=== PATIENT | male | born 2000 | race Caucasian/White ===

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

== ENCOUNTER 2022-01-27 15:24 | Emergency (ER) | payer SELFPAY ==
[2022-01-27 15:33] VITALS: BP 173/108; PULSE 108; RESP 18; TEMP 36.8; O2SAT 100
[2022-01-27 16:48] LABS: Add Urine Microscopic? NO; Charge for UA Resulting for Rev
[2022-01-27 16:53] LABS: Basophils % 0.6 %; Eosinophils # 0.1 10^3/uL (0.0-0.8); Eosinophils % 1.9 %; Hematocrit 46.1 % (42.0-52.0); Hemoglobin 15.6 g/dL (11.7-16.6); Lymphocytes # 1.9 10^3/uL (1.5-6.5); Mean Corpuscular HGB Conc 33.8 g/dL (30.0-36.0); Mean Corpuscular Hemoglobin 31.1 pg (28.0-34.0); Mean Platelet Volume 9.3 fL (7.4-10.4); Monocytes # 0.7 10^3/uL (0.2-0.9); Monocytes % 10.2 %; Nucleated Red Blood Cells % 0 %; Platelet Count 348 10^3/cmm (130-400); Red Blood Count 5.01 10^6/uL (4.1-5.3); Red Cell Distribution Width 12.9 % (12.1-15.1); White Blood Count 6.8 10^3/uL (4.5-13.0)
--- NOTE | 2022-01-27 17:01 | W.ED.GENADLT ---
HPI - General Adult General: Chief complaint: General Medical Stated complaint: pain in groin/swollen Time Seen by Provider: 01/27/22 17:01 History of Present Illness: Patient is a 22-year-old male without any significant past medical history presenting to the emergency room with left inner thigh pain and bump x5 days. Patient was at work when she first noticed this bump which has been persistent. Patient's rash to her 10 pain worse with irritation. Patient denies any fever/chills, groin pain, testicular pain or swelling, new penile discharge, urinary symptoms or abdominal pain. Patient denies any injuries or fall Onset:5 days ago Duration:5 days Location: L inner thigh Severity: mild Associated symptoms: Deny chest pain, dyspnea, nausea, rash, palpitations or vomiting Review of Systems Const: Denies: fever(s) or chills Eyes: Denies: change in vision ENMT: Denies: mouth pain Card: Denies: chest pain or palpitations Resp: Denies: dyspnea or non-productive cough GI: Denies: abdominal pain, nausea, vomiting or diarrhea : Denies: dysuria Musc: Reports: extremity pain (+L inner thigh pain and knot ) Skin/Breast: Denies: rash or new lesions Neuro: Denies: weakness in extremities Psych: Reports: other (Normal mood) John/Lymph: Denies: easy bruising PFS ED PFSH: Medical History No pertinent past medical history Social History Smoking and tobacco status: never smoked Alcohol intake: never Substance/Drug Use: never Physical Exam Const: COMMON NORMALS: alert HENMT: COMMON NORMALS: atraumatic HEAD & SCALP: atraumatic MOUTH: moist mucous membranes not abnormal Eye: COMMON NORMALS: EOMs intact bilaterally and conjunctivae normal CONJUNCTIVA: Yes conjunctivae normal Neck/C-Spine: COMMON NORMALS: full ROM and supple Resp: COMMON NORMALS: normal respiratory effort and clear to auscultation bilaterally AUSCULTATION: clear to auscultation bilaterally Cardio: COMMON NORMALS: regular rate RATE: regular rate GI: COMMON NORMALS: Soft to palpation and non-tender PALPATION: Yes Soft to palpation : OTHER: Normal external genitalia, Testicles non-tender b/l, no erythema. Extremity: COMMON NORMALS: full ROM NARRATIVE EXTREMITY EXAM: + Mild nonfluctuant palpable mass in the left proximal inner thigh without any surrounding erythema or fluctuance or warmth Neuro: SENSORIUM/ORIENTATION: Yes alert MOTOR EXAM: No Abnormal motor strength present and Other motor observations present (no focal motor deficits) Psych: COMMON NORMALS: speech normal SPEECH: Yes normal speech MOOD & AFFECT: Yes euthymic mood Course Vital Signs: Vital signs: Vital Signs Temperature 98.3 F 01/27/22 15:33 Pulse Rate 108 H 01/27/22 15:33 Respiratory Rate 18 01/27/22 15:33 Blood Pressure 173/108 01/27/22 15:33 Pulse Oximetry 100 01/27/22 15:33 MDM - General Adult Medical Decision Making 22-year-old male presenting to the emergency room with complaints of left inner thigh knot/mass. Exam, patient has palpable lesion without any signs of infection. White count within normal limit. No findings. Ultrasound showed hypervascular lymph nodes. Patient received Tylenol and Toradol reports pain is improved. Do not suspect acute pathology as patient does not have any findings or complaints. Incidental findings of lymph node discussed extensively with patient. Patient is instructed to follow up urgently with specialists. Patient will receive require a biopsy of this lesion. Discussed this extensively with patient and patient agrees to follow-up with his PCP for biopsy. Rx: Tylenol menthol PRN pain Disposition: Discharge. Patient counseled regarding diagnostic impression, treatment plan. Patient given ED strict return precautions to return for continuation, worsening, or development of new symptoms. Instructed to f/u w/ PCP regarding symptoms today. Patient verbalized understanding. Lab Data : 01/27/22 16:37 01/27/22 16:37 Radiology Impressions Soft Tissue Ultrasound 01/27/22 17:42 IMPRESSION: In the left inguinal region in the area of a palpable abnormality an apparent hypervascular somewhat enlarged lymph node is seen measuring 14 mm in size, nonspecific. Laboratory Results WBC 6.8 10^3/uL (4.5-13.0) 01/27/22 16:37 RBC 5.01 10^6/uL (4.1-5.3) 01/27/22 16:37 Hgb 15.6 g/dL (11.7-16.6) 01/27/22 16:37 Hct 46.1 % (42.0-52.0) 01/27/22 16:37 MCV 92.0 fl (80-94) 01/27/22 16:37 MCH 31.1 pg (28.0-34.0) 01/27/22 16:37 MCHC 33.8 g/dL (30.0-36.0) 01/27/22 16:37 RDW 12.9 % (12.1-15.1) 01/27/22 16:37 Plt Count 348 10^3/cmm (130-400) 01/27/22 16:37 MPV 9.3 fL (7.4-10.4) 01/27/22 16:37 Neut % (Auto) 59.0 % 01/27/22 16:37 Lymph % (Auto) 28.0 % 01/27/22 16:37 [place] % (Auto) 10.2 % 01/27/22 16:37 Eos % (Auto) 1.9 % 01/27/22 16:37 Baso % (Auto) 0.6 % 01/27/22 16:37 Neut # (Auto) 4.00 10^3/uL (1.8-8.0) 01/27/22 16:37 Lymph # (Auto) 1.9 10^3/uL (1.5-6.5) 01/27/22 16:37 [place] # (Auto) 0.7 10^3/uL (0.2-0.9) 01/27/22 16:37 Eos # (Auto) 0.1 10^3/uL (0.0-0.8) 01/27/22 16:37 Baso # (Auto) 0.0 10^3/uL (0.0-0.1) 01/27/22 16:37 Nucleated RBC % (auto) 0 % 01/27/22 16:37 Nucleated RBCs # 0.0 /100WBC 01/27/22 16:37 Sodium 138 mmol/L (136-145) 01/27/22 16:37 Potassium 4.2 mmol/L (3.5-5.1) 01/27/22 16:37 Chloride 100 mmol/L (98-107) 01/27/22 16:37 Carbon Dioxide 26 mmol/L (22-29) 01/27/22 16:37 Anion Gap 16.2 (5-19) 01/27/22 16:37 BUN 9 mg/dL (6-20) 01/27/22 16:37 Creatinine 0.9 mg/dL (0.7-1.2) 01/27/22 16:37 GFR Calculation 107.6 mL/min (90-130) 01/27/22 16:37 Glucose 125 mg/dL (65-115) H 01/27/22 16:37 Calculated Osmolality 286 mOsm/kg (285-295) 01/27/22 16:37 Lactate 1.0 mmol/L (0.5-2.2) 01/27/22 16:37 Calcium 10.1 mg/dL (8.5-10.5) 01/27/22 16:37 Total Bilirubin 0.5 mg/dL (0.15-1.2) 01/27/22 16:37 AST 15 U/L (0-40) 01/27/22 16:37 ALT 9 U/L (0-41) 01/27/22 16:37 Alkaline Phosphatase 101 IU/L (40-130) 01/27/22 16:37 Total Protein 8.1 g/dL (6.6-8.7) 01/27/22 16:37 Albumin 5.0 g/dL (3.5-5.2) 01/27/22 16:37 Globulin 3.1 g/dL (1.3-4.6) 01/27/22 16:37 Lipase 13 U/L (13-60) 01/27/22 16:37 Urine Color Yellow (Yellow) 01/27/22 16:32 Urine Appearance Clear (CLEAR) 01/27/22 16:32 Urine pH 6.5 (5-7) 01/27/22 16:32 Ur Specific Deputy 1.010 (1.005-1.030) 01/27/22 16:32 Urine Protein Neg (Negative) 01/27/22 16:32 Urine Glucose (UA) Norm (Normal) 01/27/22 16:32 Urine Ketones Negative (Negative) 01/27/22 16:32 Urine Blood Neg (Negative) 01/27/22 16:32 Urine Nitrate Negative (Negative) 01/27/22 16:32 Urine Bilirubin Neg (Negative) 01/27/22 16:32 Urine Urobilinogen 1 mg/dL (Negative) H 01/27/22 16:32 Ur Leukocyte Esterase Negative (Negative) 01/27/22 16:32 Imaging Data Other Imaging: Radiologist's impression: [address] [address] Ultrasound Report Signed Patient: Shaheen Curiel Unit #: [id number] : 2000 Age/Sex: 22 / M ADM Date: 01/27/22 Loc: ER Room/Bed: Attending Dr: Ordering Provider/Ordering MD: Jorge Salcido MD Date of Service: 01/27/22 Procedure(s): US soft tissue/extremity 88233 Accession Number(s): [id number] Report Number: [id number] PROCEDURE INFORMATION: Exam: US Unlisted Ultrasound Procedure Exam date and time: 01/27/2022 6:38 PM Age: 22 years old Clinical indication: Symptoms: PT noticed a palpable mass on the proximal lt thigh approximately 4-5 days prior to exam; Additional info: L inner groin lesion TECHNIQUE: Imaging protocol: Unlisted ultrasound procedure (eg, diagnostic, interventional). COMPARISON: No relevant prior studies available. FINDINGS: Procedural imaging: In the left inguinal region in the area of a palpable abnormality an apparent hypervascular somewhat enlarged lymph node is seen measuring 14 mm in size, nonspecific. US/US soft tissue/extremity [id number] IMPRESSION: In the left inguinal region in the area of a palpable abnormality an apparent hypervascular somewhat enlarged lymph node is seen measuring 14 mm in size, nonspecific. ? Dictated By: Juan Vazquez MD Signed By: Juan Vazquez MD Signed Date/Time: 01/27/221922 DD/ 1838 Discharge Plan Discharge Patient Disposition: Home Clinical Impression: Leg pain, Lymphadenopathy Condition: Stable Prescriptions: New acetaminophen 500 mg tablet 500 mg PO Q6H PRN (Reason: pain) 5 Days Qty: 20 0RF Biofreeze (menthol) 5 % gel 1 ea topical BID PRN (Reason: pain) 10 Days Qty: 1 0RF No Action cyclobenzaprine 10 mg tablet 10 mg PO TID PRN (Reason: muscle spasm) Qty: 60 0RF ketorolac 10 mg tablet 10 mg PO TID PRN (Reason: pain) 5 Days Qty: 15 0RF Discharge Orders: Discharge ED (Routine); Ordered 01/27/22 Ordered By: Jorge Salcido Referrals: María Medina SECURITIES CONSULTANT [Nurse Practitioner] - Discharge Diet: Advance as tolerated Discharge Activity: Increase activity as tolerated Activity Restrictions/Additional Instructions: Come back if you have any new or concerning issues. Please follow-up with your primary care provider for further biopsy and evaluation of this lesion. [employer] [address] Ultrasound Report Signed Patient: Shaheen Curiel Unit #: [id number] : 2000 Age/Sex: 22 / M ADM Date: 01/27/22 Loc: ER Room/Bed: Attending Dr: Ordering Provider/Ordering MD: Jorge Salcido MD Date of Service: 01/27/22 Procedure(s): US soft tissue/extremity 03617 Accession Number(s): [id number] Report Number: [id number] PROCEDURE INFORMATION: Exam: US Unlisted Ultrasound Procedure Exam date and time: 01/27/2022 6:38 PM Age: 22 years old Clinical indication: Symptoms: PT noticed a palpable mass on the proximal lt thigh approximately 4-5 days prior to exam; Additional info: L inner groin lesion TECHNIQUE: Imaging protocol: Unlisted ultrasound procedure (eg, diagnostic, interventional). COMPARISON: No relevant prior studies available. FINDINGS: Procedural imaging: In the left inguinal region in the area of a palpable abnormality an apparent hypervascular somewhat enlarged lymph node is seen measuring 14 mm in size, nonspecific. US/US soft tissue/extremity 55846 IMPRESSION: In the left inguinal region in the area of a palpable abnormality an apparent hypervascular somewhat enlarged lymph node is seen measuring 14 mm in size, nonspecific. ? Dictated By: Juan Vazquez MD Signed By: Juan Vazquez MD Signed Date/Time: 01/27/221922 DD/ 1838 Stand Alone Forms: Work/School Release Coding Level of Care Code ED Notched Blade Loader for Chg Fwd Exam Comprehensive
[2022-01-27 17:03] LABS: Urine Appearance Clear (CLEAR); Urine Color Yellow (Yellow)
[2022-01-27 17:04] LABS: Bilirubin Urine Neg (Negative); Blood Urine Neg (Negative); Glucose Urine UA Norm (Normal); Ketones Urine Negative (Negative); Leukocyte Esterase Urine Negative (Negative); Nitrate Urine Negative (Negative); Protein Urine Neg (Negative); Urobilinogen Urine 1 mg/dL (Negative); pH Urine 6.5 (5-7)
[2022-01-27 17:25] LABS: Alanine Aminotransferase 9 U/L (0-41); Alkaline Phosphatase 101 IU/L (40-130); Anion Gap 16.2 (5-19); Aspartate Amino Transferase 15 U/L (0-40); Blood Urea Nitrogen 9 mg/dL (6-20); Calcium 10.1 mg/dL (8.5-10.5); Carbon Dioxide 26 mmol/L (22-29); Chloride 100 mmol/L (98-107); Globulin 3.1 g/dL (1.3-4.6); Glomerular Filtration Rate 107.6 mL/min (90-130); Glucose 125 mg/dL (65-115); Lipase 13 U/L (13-60); Osmolality Calculated 286 mOsm/kg (285-295); Potassium 4.2 mmol/L (3.5-5.1); Sodium 138 mmol/L (136-145); Total Bilirubin 0.5 mg/dL (0.15-1.2); Total Protein 8.1 g/dL (6.6-8.7)
--- NOTE | 2022-01-27 17:42 | USR_ITS ---
PROCEDURE INFORMATION: Exam: US Unlisted Ultrasound Procedure Exam date and time: 01/27/2022 6:38 PM Age: 22 years old Clinical indication: Symptoms: PT noticed a palpable mass on the proximal lt thigh approximately 4-5 days prior to exam; Additional info: L inner groin lesion TECHNIQUE: Imaging protocol: Unlisted ultrasound procedure (eg, diagnostic, interventional). COMPARISON: No relevant prior studies available. FINDINGS: Procedural imaging: In the left inguinal region in the area of a palpable abnormality an apparent hypervascular somewhat enlarged lymph node is seen measuring 14 mm in size, nonspecific. US/US soft tissue/extremity 18204 IMPRESSION: In the left inguinal region in the area of a palpable abnormality an apparent hypervascular somewhat enlarged lymph node is seen measuring 14 mm in size, nonspecific.
[2022-01-27] MEDS: acetaminophen 500 mg Tablet PO (18:21)
[2022-01-27] MEDS: ketorolac 30 mg/mL INJ IM (18:22)
[2022-01-27 19:39] VITALS: BP 140/68; PULSE 75; RESP 20
== END 2022-01-27 19:42 | disposition home or self-care (01) ==
PROVIDERS: Emergency Provider Emergency Medicine
DX: M79.605 Pain in left leg (principal); R59.1 Generalized enlarged lymph nodes
CPT/HCPCS: 76882; 80053; 81003; 83605; 83690; 85025; 96372; 99283; J1885

== ENCOUNTER → 2022-11-15 15:18 | Outpatient (BNVA) | payer SELFPAY | PROVIDERS: Visit Provider Nurse Practitioner Family | DX: J30.9 Allergic rhinitis, unspecified (principal); J32.9 Chronic sinusitis, unspecified | CPT/HCPCS: 82785; 86003 ==

== ENCOUNTER → 2022-11-22 16:27 | Outpatient (BNVA) | payer SELFPAY | PROVIDERS: Visit Provider Nurse Practitioner Family | DX: J02.9 Acute pharyngitis, unspecified (principal) | CPT/HCPCS: 87071; 87880 ==